=== PATIENT | male | born 1955 ===

== ENCOUNTER 2021-02-06 12:20 | Outpatient (CLI) | payer BC ==
[2021-02-06 14:39] LABS: Anion Gap 17 mmol/L (10-20); BUN (Urea Nitrogen) 29 mg/dL (8.4-25.7); Calc. Creatinine Clearance 0 mL/min (70-130); Carbon Dioxide 21 mmol/L (23-31); Chloride 107 mmol/L (98-107); Glucose 127 mg/dL (80-115); Hemoglobin 16.1 g/dL (13.5-17.5); Mean Corpuscular HGB CONC 33.9 g/dL (32.0-36.0); Mean Corpuscular Hemoglobin 29.6 pg (27.0-33.0); Mean Corpuscular Volume 87.3 fl (81.2-95.1); Mean Platelet Volume 12.2 fl (7.4-10.4); Platelet Count 279 10x3/uL (150-450); Potassium 4.5 mmol/L (3.5-5.1); RBC Distribution Width 12.9 % (11.5-14.5); Red Blood Cell (RBC) Count 5.44 10x6/uL (4.32-5.72); Sodium 140 mmol/L (136-145); White Blood Cell (WBC) Count 8.6 10x3/uL (3.5-10.5)
[2021-02-07 11:58] LABS: SARS-CoV-2 PCR by NAA Not Detected (NotDetected)
== END 2021-02-06 12:21 | disposition home or self-care (01) ==
LOC: CSHLAB 12:20
PROVIDERS: ATTEND Surgery
DX: Z01.818 Encounter for other preprocedural examination (principal); Z20.822 Contact with and (suspected) exposure to COVID-19; K40.90 Unilateral inguinal hernia, without obstruction or gangrene, not specified as recurrent
CPT/HCPCS: 80048; 85027; 93005; 93010; U0003; U0005

== ENCOUNTER 2022-09-08 12:10 | Outpatient (CLI) | payer BC ==
[2022-09-08] MEDS ORDERED: Iopamidol 300 61% 100 ML VIAL FS ONE (13:57)
== END 2022-09-08 12:11 | disposition home or self-care (01) ==
LOC: CSHCT 12:10
PROVIDERS: ATTEND Urology
DX: R31.29 Other microscopic hematuria (principal)
CPT/HCPCS: 74178